=== PATIENT | female | born 1965 | race African-American/Black ===

== ENCOUNTER 2022-06-11 17:34 | Emergency (ER) | payer OTHER | END 2022-06-11 18:53 | disposition home or self-care (01) | LOC: CSHERS 17:34 | DX: I82.401 Acute embolism and thrombosis of unspecified deep veins of right lower extremity (principal); I10 Essential (primary) hypertension; F17.220 Nicotine dependence, chewing tobacco, uncomplicated ==

== ENCOUNTER 2023-03-16 23:45 | Inpatient (IN) | payer OTHER ==
[2023-03-17] MEDS ORDERED: Vancomycin 1 GM VIAL ONE (00:12)
[2023-03-17] MEDS ORDERED: Cefepime 2 GM VIAL ONE ×2 (00:12→11:55)
[2023-03-17 00:37] LABS: ALT (SGPT) 16 U/L (8-55); AST (SGOT) 23 U/L (5-34); Albumin 3.1 g/dL (3.5-5.0); Alkaline Phosphatase 47 U/L (40-110); Anion Gap 15 mmol/L (10-20); BUN (Urea Nitrogen) 28 mg/dL (9.8-20.1); Bilirubin, Total 0.8 mg/dL (0.2-1.2); Calc. Creatinine Clearance 0 mL/min (70-130); Carbon Dioxide 24 mmol/L (22-29); Chloride 96 mmol/L (98-107); Estimated GFR 16; Globulin 4.1 g/dL (2.4-3.5); Glucose 117 mg/dL (70-105); Magnesium 1.6 mg/dL (1.6-2.6); Potassium 2.7 mmol/L (3.5-5.1); Protein, Total 7.2 g/dL (6.0-8.3); Sodium 132 mmol/L (136-145)
[2023-03-17 00:40] LABS: Hemoglobin 9.3 g/dL (12.0-15.5); Mean Corpuscular HGB CONC 33.3 g/dL (32.0-36.0); Mean Corpuscular Hemoglobin 32.7 pg (27.0-33.0); Mean Corpuscular Volume 98.2 fl (81.6-98.3); Mean Platelet Volume 9.4 fl (7.4-10.4); Platelet Count 290 10x3/uL (150-450); RBC Distribution Width 14.4 % (11.5-14.5); Red Blood Cell (RBC) Count 2.84 10x6/uL (3.90-5.03); White Blood Cell (WBC) Count 16.2 10x3/uL (3.5-10.5)
[2023-03-17 00:46] LABS: MDiff Complete? YES
[2023-03-17] MEDS ORDERED: Ondansetron PF 4 MG/2 ML Vial ONE (00:49)
[2023-03-17] MEDS ORDERED: Morphine 4 MG/ML VIAL ONE (00:50)
[2023-03-17 01:03] LABS: Band 22 % (5-11); Lymphocytes 6 % (21-51); Monocytes 2 % (0-10); Neutrophil 70 % (42-75)
[2023-03-17 01:04] LABS: Platelet Adequacy Comment Appears Adequate; RBC Morph Comment Within Normal Limits
[2023-03-17] MEDS ORDERED: Potassium Bicarbonate/Cit Ac 25 MEQ TAB PO SCH (01:45)
[2023-03-17] MEDS ORDERED: Acetaminophen 325 MG TAB PO PRN (03:36)
[2023-03-17] MEDS ORDERED: Sodium Chloride 0.9% 1,000 ML IV SCH (04:00)
[2023-03-17 07:45] VITALS: BMI 38.5
[2023-03-17 09:47] LABS: Anion Gap 16 mmol/L (10-20); BUN (Urea Nitrogen) 34 mg/dL (9.8-20.1); Calc. Creatinine Clearance 27 mL/min (70-130); Calcium 8.7 mg/dL (7.8-10.44); Carbon Dioxide 23 mmol/L (22-29); Chloride 98 mmol/L (98-107); Estimated GFR 14; Glucose 113 mg/dL (70-105); Potassium 3.3 mmol/L (3.5-5.1); Sodium 134 mmol/L (136-145)
[2023-03-17 09:48] LABS: Hemoglobin 9.1 g/dL (12.0-15.5); Mean Corpuscular HGB CONC 33.2 g/dL (32.0-36.0); Mean Corpuscular Hemoglobin 32.6 pg (27.0-33.0); Mean Corpuscular Volume 98.2 fl (81.6-98.3); Mean Platelet Volume 9.3 fl (7.4-10.4); Platelet Count 309 10x3/uL (150-450); RBC Distribution Width 14.6 % (11.5-14.5); Red Blood Cell (RBC) Count 2.79 10x6/uL (3.90-5.03); White Blood Cell (WBC) Count 17.3 10x3/uL (3.5-10.5)
[2023-03-17] MEDS: Enoxaparin 120 MG/0.8 ML SYRINGE SC SCH (09:53)
[2023-03-17 10:29] LABS: Band 16 % (5-11); Lymphocytes 7 % (21-51); Monocytes 4 % (0-10); Neutrophil 73 % (42-75)
[2023-03-17 10:31] LABS: Dohle Bodies SLIGHT; Toxic Granulation SLIGHT
[2023-03-17 10:32] LABS: Large Platelets SLIGHT (None Seen); Platelet Adequacy Comment Appears Adequate; RBC Morph Comment Within Normal Limits; Vacuoles SLIGHT
[2023-03-17 10:33] LABS: MDiff Complete? YES
[2023-03-17] MEDS ORDERED: Potassium Chloride 20 MEQ TAB PO SCH (11:00)
[2023-03-17] MEDS ORDERED: Potassium Chloride 20 MEQ TAB ONE (11:55)
[2023-03-17] MEDS ORDERED: Cefepime 2 GM in Sodium Chloride 0.9% 100 ML IVPB SCH (12:00)
[2023-03-17] MEDS ORDERED: Vancomycin 1.5 GRAM/300 ML BAG IVPB SCH (12:00)
[2023-03-17 12:26] LABS: Vancomycin, Random 10.8 ug/mL (See Comment)
[2023-03-17] MEDS ORDERED: Vancomycin HCl 750 MG in Sodium Chloride 0.9% 250 ML 250 ML IVPB SCH (13:00)
[2023-03-17] MEDS ORDERED: Vancomycin Dose by Levels Sliding Scale (Wt > 99) FS SCH (14:15)
[2023-03-17] MEDS: Sodium Chloride 0.9% 1,000 ML IV SCH ×2 (19:57→20:08)
[2023-03-17] MEDS: traMADol HCl 50 MG TAB PO PRN (22:40)
[2023-03-17] MEDS: Cefepime 1 GM in Sodium Chloride 0.9% 100 ML IVPB SCH (23:56)
[2023-03-18] MEDS: Sodium Chloride 0.9% 1,000 ML IV SCH ×2 (03:17→14:47)
[2023-03-18 05:06] LABS: Hemoglobin 7.6 g/dL (12.0-15.5); Mean Corpuscular HGB CONC 32.3 g/dL (32.0-36.0); Mean Corpuscular Hemoglobin 32.2 pg (27.0-33.0); Mean Corpuscular Volume 99.6 fl (81.6-98.3); Mean Platelet Volume 9.1 fl (7.4-10.4); Platelet Count 270 10x3/uL (150-450); Red Blood Cell (RBC) Count 2.36 10x6/uL (3.90-5.03); White Blood Cell (WBC) Count 16.8 10x3/uL (3.5-10.5)
[2023-03-18 05:08] LABS: MDiff Complete? YES
[2023-03-18 05:13] LABS: Anion Gap 15 mmol/L (10-20); BUN (Urea Nitrogen) 34 mg/dL (9.8-20.1); Calc. Creatinine Clearance 35 mL/min (70-130); Calcium 8.3 mg/dL (7.8-10.44); Carbon Dioxide 22 mmol/L (22-29); Chloride 105 mmol/L (98-107); Estimated GFR 18; Glucose 98 mg/dL (70-105); Potassium 3.5 mmol/L (3.5-5.1); Sodium 138 mmol/L (136-145)
[2023-03-18 05:47] LABS: Band 15 % (5-11); Eosinophils 1 % (0-10); Lymphocytes 7 % (21-51); Monocytes 3 % (0-10); Neutrophil 73 % (42-75)
[2023-03-18 05:49] LABS: Platelet Adequacy Comment Appears Adequate; RBC Morph Comment Within Normal Limits
[2023-03-18] MEDS: Potassium Chloride 20 MEQ TAB PO SCH (09:19)
[2023-03-18] MEDS: Enoxaparin 120 MG/0.8 ML SYRINGE SC SCH (09:21)
[2023-03-18] MEDS: Cefepime 1 GM in Sodium Chloride 0.9% 100 ML IVPB SCH ×2 (13:22→23:57)
[2023-03-18 14:26] LABS: Vancomycin, Random 9.8 ug/mL (See Comment)
[2023-03-18] MEDS: Lactated Ringer's 1,000 ML IV SCH ×2 (15:30→21:03)
[2023-03-18] MEDS ORDERED: VANCOMYCIN 1.25 GM/250 ML BAG 1.25 GM in Premix Bag 1 BAG IVPB SCH (16:00)
[2023-03-18] MEDS: traMADol HCl 50 MG TAB PO PRN (16:25)
[2023-03-18 18:46] LABS: Bilirubin Neg (Negative); Blood, Urine 150 (Negative); Glucose, Urine (Dipstick) Normal (Negative); Ketone, Urine Negative (Negative); Leukocyte Negative (Negative); Nitrite Negative (Negative); Protein, Urine (Dipstick) 30 mg/dl (Neg-Trace); Urobilinogen Normal mg/dL (Less than 2)
[2023-03-18 18:47] LABS: Clarity Hazy (Clear)
[2023-03-18 19:04] LABS: Bacteria/HPF None Seen HPF (None Seen); RBC/HPF 0-3 HPF (0-3); Squamous Epithelial 0-3 HPF (0-3); WBC/HPF 0-3 HPF (0-3)
[2023-03-18 19:40] LABS: Platelet Count 272 10x3/uL (150-450)
[2023-03-18] MEDS ORDERED: Famotidine 20 MG TAB PO SCH (21:00)
[2023-03-18] MEDS ORDERED: ABEMACICLIB 150 MG PO SCH (21:00)
[2023-03-18] MEDS: DULoxetine 30 MG CAP PO SCH (21:04)
[2023-03-18] MEDS: Calcium Carbonate 600 MG + Vit D TAB PO SCH (21:04)
[2023-03-19] MEDS ORDERED: Cefepime 1 GM in Sodium Chloride 0.9% 100 ML IVPB SCH (00:01)
[2023-03-19] MEDS: traMADol HCl 50 MG TAB PO PRN ×2 (04:07→16:20)
[2023-03-19 04:53] LABS: #Basophils 0.1 10x3/uL (0.0-0.2); #Eosinphils 0.1 10x3/uL (0.0-0.5); #Monocytes 0.3 10x3/uL (0.0-1.1); #Neutrophils 9.3 10x3/uL (1.5-8.4); %Basophils 0.6 % (0.0-2.0); %Eosinophils 1.2 % (0.0-6.0); %Lymphocytes 9.6 % (18.0-47.0); %Neutrophils 84.2 % (40.0-75.0); Hemoglobin 7.7 g/dL (12.0-15.5); Mean Corpuscular HGB CONC 32.4 g/dL (32.0-36.0); Mean Corpuscular Hemoglobin 32.4 pg (27.0-33.0); Mean Platelet Volume 9.3 fl (7.4-10.4); Platelet Count 283 10x3/uL (150-450); RBC Distribution Width 15.3 % (11.5-14.5); Red Blood Cell (RBC) Count 2.38 10x6/uL (3.90-5.03)
[2023-03-19 05:13] LABS: Vancomycin, Random 17.6 ug/mL (See Comment)
[2023-03-19 05:15] LABS: Anion Gap 13 mmol/L (10-20); BUN (Urea Nitrogen) 22 mg/dL (9.8-20.1); Calc. Creatinine Clearance 55 mL/min (70-130); Calcium 8.9 mg/dL (7.8-10.44); Carbon Dioxide 22 mmol/L (22-29); Chloride 110 mmol/L (98-107); Estimated GFR 32; Glucose 100 mg/dL (70-105); Iron 20 ug/dL (50-170); Iron Binding Capacity, Total 173 mcg/dL (265-497); Potassium 3.5 mmol/L (3.5-5.1); Sodium 141 mmol/L (136-145)
[2023-03-19] MEDS: Lactated Ringer's 1,000 ML IV SCH ×4 (05:52→21:23)
[2023-03-19] MEDS ORDERED: Vancomycin HCl 750 MG in Sodium Chloride 0.9% 250 ML 250 ML IVPB SCH (06:00)
[2023-03-19] MEDS ORDERED: Iron, Sodium Ferric Gluconate 125 MG in Sodium Chloride 0.9% 100 ML IVPB SCH ×2 (08:00→11:15)
[2023-03-19] MEDS: Enoxaparin 120 MG/0.8 ML SYRINGE SC SCH (08:03)
[2023-03-19] MEDS: Calcium Carbonate 600 MG + Vit D TAB PO SCH ×2 (08:04→21:23)
[2023-03-19] MEDS: Potassium Chloride 20 MEQ TAB PO SCH (08:04)
[2023-03-19] MEDS ORDERED: Famotidine 20 MG TAB PO SCH (09:00)
[2023-03-19] MEDS: Folic Acid/Vit B Comp W-C PO SCH (09:20)
[2023-03-19] MEDS: Cefepime 1 GM in Sodium Chloride 0.9% 100 ML IVPB SCH (12:22)
[2023-03-19] MEDS ORDERED: Morphine 2 MG/ML VIAL SLOW IVP PRN (18:55)
[2023-03-19] MEDS: DULoxetine 30 MG CAP PO SCH (21:23)
[2023-03-20] MEDS: Cefepime 1 GM in Sodium Chloride 0.9% 100 ML IVPB SCH ×2 (00:41→12:53)
[2023-03-20 04:56] LABS: #Basophils 0.1 10x3/uL (0.0-0.2); #Eosinphils 0.1 10x3/uL (0.0-0.5); #Monocytes 0.2 10x3/uL (0.0-1.1); #Neutrophils 7.1 10x3/uL (1.5-8.4); %Basophils 0.8 % (0.0-2.0); %Eosinophils 1.6 % (0.0-6.0); %Lymphocytes 12.7 % (18.0-47.0); %Monocytes 2.7 % (0.0-10.0); %Neutrophils 80.9 % (40.0-75.0); Hemoglobin 7.6 g/dL (12.0-15.5); Mean Corpuscular HGB CONC 32.2 g/dL (32.0-36.0); Mean Corpuscular Hemoglobin 32.8 pg (27.0-33.0); Mean Corpuscular Volume 101.7 fl (81.6-98.3); Mean Platelet Volume 9.4 fl (7.4-10.4); Platelet Count 303 10x3/uL (150-450); RBC Distribution Width 15.2 % (11.5-14.5); Red Blood Cell (RBC) Count 2.32 10x6/uL (3.90-5.03); White Blood Cell (WBC) Count 8.8 10x3/uL (3.5-10.5)
[2023-03-20 05:10] LABS: Anion Gap 15 mmol/L (10-20); BUN (Urea Nitrogen) 17 mg/dL (9.8-20.1); Calc. Creatinine Clearance 77 mL/min (70-130); Calcium 9.4 mg/dL (7.8-10.44); Carbon Dioxide 21 mmol/L (22-29); Chloride 111 mmol/L (98-107); Estimated GFR 47; Glucose 93 mg/dL (70-105); Potassium 3.7 mmol/L (3.5-5.1); Sodium 143 mmol/L (136-145); Vancomycin, Random 12.6 ug/mL (See Comment)
[2023-03-20] MEDS: Lactated Ringer's 1,000 ML IV SCH ×2 (05:27→12:54)
[2023-03-20] MEDS: Ferrous Sulfate 325 MG TAB PO SCH (09:00)
[2023-03-20] MEDS: Potassium Chloride 20 MEQ TAB PO SCH (09:00)
[2023-03-20] MEDS: Famotidine 20 MG TAB PO SCH ×2 (09:00→21:21)
[2023-03-20] MEDS: Calcium Carbonate 600 MG + Vit D TAB PO SCH ×2 (09:00→21:21)
[2023-03-20] MEDS: Folic Acid/Vit B Comp W-C PO SCH (09:01)
[2023-03-20] MEDS: Enoxaparin 120 MG/0.8 ML SYRINGE SC SCH ×2 (09:02→21:21)
[2023-03-20] MEDS: VANCOMYCIN 1.25 GM/250 ML BAG 1.25 GM in Premix Bag 1 BAG IVPB SCH (09:03)
[2023-03-20] MEDS: HYDROcodone/Acetaminophen 5/325 mg Tablet PO PRN (12:51)
[2023-03-20] MEDS ORDERED: Lactated Ringer's 1,000 ML IV SCH (15:12)
[2023-03-20] MEDS: DULoxetine 30 MG CAP PO SCH (21:21)
[2023-03-21] MEDS: Cefepime 1 GM in Sodium Chloride 0.9% 100 ML IVPB SCH ×2 (00:01→13:03)
[2023-03-21 04:27] LABS: #Basophils 0.1 10x3/uL (0.0-0.2); #Eosinphils 0.1 10x3/uL (0.0-0.5); #Monocytes 0.3 10x3/uL (0.0-1.1); #Neutrophils 7.4 10x3/uL (1.5-8.4); %Eosinophils 1.3 % (0.0-6.0); %Lymphocytes 12.8 % (18.0-47.0); %Monocytes 3.2 % (0.0-10.0); %Neutrophils 80.3 % (40.0-75.0); Hemoglobin 7.9 g/dL (12.0-15.5); Mean Corpuscular HGB CONC 31.9 g/dL (32.0-36.0); Mean Corpuscular Volume 100.4 fl (81.6-98.3); Mean Platelet Volume 9.5 fl (7.4-10.4); Platelet Count 323 10x3/uL (150-450); RBC Distribution Width 14.9 % (11.5-14.5); Red Blood Cell (RBC) Count 2.47 10x6/uL (3.90-5.03); White Blood Cell (WBC) Count 9.2 10x3/uL (3.5-10.5)
[2023-03-21 04:42] LABS: Anion Gap 13 mmol/L (10-20); BUN (Urea Nitrogen) 13 mg/dL (9.8-20.1); Calc. Creatinine Clearance 99 mL/min (70-130); Calcium 9.8 mg/dL (7.8-10.44); Carbon Dioxide 21 mmol/L (22-29); Chloride 112 mmol/L (98-107); Estimated GFR 64; Glucose 84 mg/dL (70-105); Sodium 142 mmol/L (136-145)
[2023-03-21] MEDS: Potassium Chloride 20 MEQ TAB PO SCH (08:04)
[2023-03-21] MEDS: Famotidine 20 MG TAB PO SCH ×2 (08:04→20:59)
[2023-03-21] MEDS: Calcium Carbonate 600 MG + Vit D TAB PO SCH ×2 (08:07→20:59)
[2023-03-21] MEDS: Enoxaparin 120 MG/0.8 ML SYRINGE SC SCH ×2 (08:07→20:58)
[2023-03-21] MEDS: Ferrous Sulfate 325 MG TAB PO SCH (08:07)
[2023-03-21] MEDS: Folic Acid/Vit B Comp W-C PO SCH (08:07)
[2023-03-21] MEDS: VANCOMYCIN 1.25 GM/250 ML BAG 1.25 GM in Premix Bag 1 BAG IVPB SCH (09:03)
[2023-03-21] MEDS ORDERED: Thiamine HCl 200 MG/2 ML VIAL SLOW IVP SCH (10:45)
[2023-03-21] MEDS ORDERED: Lisinopril 20 MG TAB PO SCH (14:45)
[2023-03-21] MEDS ORDERED: Enoxaparin 120 MG/0.8 ML SYRINGE SC ONE (20:53)
[2023-03-21] MEDS: DULoxetine 30 MG CAP PO SCH (20:58)
[2023-03-22] MEDS: Cefepime 1 GM in Sodium Chloride 0.9% 100 ML IVPB SCH (00:43)
[2023-03-22 04:48] LABS: #Basophils 0.1 10x3/uL (0.0-0.2); #Eosinphils 0.1 10x3/uL (0.0-0.5); #Monocytes 0.3 10x3/uL (0.0-1.1); #Neutrophils 7.4 10x3/uL (1.5-8.4); %Eosinophils 1.3 % (0.0-6.0); %Lymphocytes 15.3 % (18.0-47.0); %Monocytes 3.1 % (0.0-10.0); %Neutrophils 78.1 % (40.0-75.0); Hemoglobin 7.5 g/dL (12.0-15.5); Mean Corpuscular HGB CONC 32.1 g/dL (32.0-36.0); Mean Corpuscular Hemoglobin 32.3 pg (27.0-33.0); Mean Corpuscular Volume 100.9 fl (81.6-98.3); Mean Platelet Volume 9.8 fl (7.4-10.4); Platelet Count 322 10x3/uL (150-450); RBC Distribution Width 14.6 % (11.5-14.5); Red Blood Cell (RBC) Count 2.32 10x6/uL (3.90-5.03); White Blood Cell (WBC) Count 9.4 10x3/uL (3.5-10.5)
[2023-03-22 04:49] LABS: Anion Gap 12 mmol/L (10-20); BUN (Urea Nitrogen) 11 mg/dL (9.8-20.1); Calc. Creatinine Clearance 114 mL/min (70-130); Calcium 9.3 mg/dL (7.8-10.44); Carbon Dioxide 22 mmol/L (22-29); Chloride 109 mmol/L (98-107); Estimated GFR 76; Glucose 93 mg/dL (70-105); Potassium 3.5 mmol/L (3.5-5.1); Sodium 139 mmol/L (136-145)
[2023-03-22 08:57] LABS: Vancomycin, Trough 10.2 ug/mL
[2023-03-22] MEDS: Folic Acid/Vit B Comp W-C PO SCH (10:15)
[2023-03-22] MEDS: Enoxaparin 120 MG/0.8 ML SYRINGE SC SCH (10:15)
[2023-03-22] MEDS: Calcium Carbonate 600 MG + Vit D TAB PO SCH ×2 (10:15→20:18)
[2023-03-22] MEDS: Lisinopril 20 MG TAB PO SCH (10:16)
[2023-03-22] MEDS: Potassium Chloride 20 MEQ TAB PO SCH (10:16)
[2023-03-22] MEDS: Ferrous Sulfate 325 MG TAB PO SCH (10:16)
[2023-03-22] MEDS: Thiamine 100 MG TAB PO SCH (10:16)
[2023-03-22] MEDS: Famotidine 20 MG TAB PO SCH ×2 (10:16→20:18)
[2023-03-22] MEDS: VANCOMYCIN 1.25 GM/250 ML BAG 1.25 GM in Premix Bag 1 BAG IVPB SCH (10:17)
[2023-03-22] MEDS: Cefepime 2 GM in Sodium Chloride 0.9% 100 ML IVPB SCH (12:00)
[2023-03-22] MEDS: HYDROcodone/Acetaminophen 5/325 mg Tablet PO PRN (13:34)
[2023-03-22] MEDS: Apixaban 5 MG TAB PO SCH (20:18)
[2023-03-22] MEDS: DULoxetine 30 MG CAP PO SCH (20:18)
[2023-03-23] MEDS: Cefepime 2 GM in Sodium Chloride 0.9% 100 ML IVPB SCH ×2 (00:59→11:40)
[2023-03-23 04:04] LABS: Anion Gap 9 mmol/L (10-20); BUN (Urea Nitrogen) 8 mg/dL (9.8-20.1); Calc. Creatinine Clearance 107 mL/min (70-130); Calcium 9.2 mg/dL (7.8-10.44); Carbon Dioxide 24 mmol/L (22-29); Chloride 110 mmol/L (98-107); Estimated GFR 70; Glucose 99 mg/dL (70-105); Potassium 3.7 mmol/L (3.5-5.1); Sodium 139 mmol/L (136-145)
[2023-03-23 04:10] LABS: #Basophils 0.1 10x3/uL (0.0-0.2); #Eosinphils 0.1 10x3/uL (0.0-0.5); #Monocytes 0.3 10x3/uL (0.0-1.1); #Neutrophils 5.7 10x3/uL (1.5-8.4); %Basophils 0.7 % (0.0-2.0); %Eosinophils 1.4 % (0.0-6.0); %Lymphocytes 18.4 % (18.0-47.0); %Monocytes 3.5 % (0.0-10.0); %Neutrophils 74.7 % (40.0-75.0); Hemoglobin 7.5 g/dL (12.0-15.5); Mean Corpuscular HGB CONC 32.2 g/dL (32.0-36.0); Mean Corpuscular Hemoglobin 32.3 pg (27.0-33.0); Mean Corpuscular Volume 100.4 fl (81.6-98.3); Mean Platelet Volume 9.6 fl (7.4-10.4); Platelet Count 318 10x3/uL (150-450); RBC Distribution Width 14.6 % (11.5-14.5); Red Blood Cell (RBC) Count 2.32 10x6/uL (3.90-5.03); White Blood Cell (WBC) Count 7.6 10x3/uL (3.5-10.5)
[2023-03-23] MEDS: Ferrous Sulfate 325 MG TAB PO SCH (08:21)
[2023-03-23] MEDS: Potassium Chloride 20 MEQ TAB PO SCH (08:21)
[2023-03-23] MEDS: VANCOMYCIN 1.25 GM/250 ML BAG 1.25 GM in Premix Bag 1 BAG IVPB SCH (09:05)
[2023-03-23] MEDS: Apixaban 5 MG TAB PO SCH (09:22)
[2023-03-23] MEDS: Famotidine 20 MG TAB PO SCH (09:22)
[2023-03-23] MEDS: Folic Acid/Vit B Comp W-C PO SCH (09:22)
[2023-03-23] MEDS: Lisinopril 20 MG TAB PO SCH (09:22)
[2023-03-23] MEDS: Calcium Carbonate 600 MG + Vit D TAB PO SCH (09:22)
[2023-03-23] MEDS: Thiamine 100 MG TAB PO SCH (09:23)
[2023-03-23 12:25] VITALS: TEMP 98
[2023-03-23 16:45] VITALS: BP 166/86
== END 2023-03-23 18:55 | disposition home or self-care (01) | DRG 872 ==
LOC: CSHERS 23:45 → CSHERHOLD 03-17 01:33 → CSHTELE 03-17 18:26
PROVIDERS: ADMIT Internal Medicine; ATTEND Internal Medicine
PROC: 3E03329 Introduction of Other Anti-infective into Peripheral Vein, Percutaneous Approach (ICD-10-PCS; principal; 2023-03-17)
PROC: 0Y9J3ZX Drainage of Left Lower Leg, Percutaneous Approach, Diagnostic (ICD-10-PCS; 2023-03-18)
DX: A41.9 Sepsis, unspecified organism (principal); L03.116 Cellulitis of left lower limb; N17.9 Acute kidney failure, unspecified; C79.51 Secondary malignant neoplasm of bone; R65.20 Severe sepsis without septic shock; J45.909 Unspecified asthma, uncomplicated; C50.912 Malignant neoplasm of unspecified site of left female breast; E87.6 Hypokalemia; E66.01 Morbid (severe) obesity due to excess calories; I12.9 Hypertensive chronic kidney disease with stage 1 through stage 4 chronic kidney disease, or unspecified chronic kidney disease; N18.9 Chronic kidney disease, unspecified; D53.9 Nutritional anemia, unspecified; D50.9 Iron deficiency anemia, unspecified; F17.210 Nicotine dependence, cigarettes, uncomplicated; I87.2 Venous insufficiency (chronic) (peripheral); F10.10 Alcohol abuse, uncomplicated; G31.2 Degeneration of nervous system due to alcohol; Z88.8 Allergy status to other drugs, medicaments and biological substances; Z79.51 Long term (current) use of inhaled steroids; Z79.899 Other long term (current) drug therapy; Z90.49 Acquired absence of other specified parts of digestive tract; Z90.710 Acquired absence of both cervix and uterus; Z98.890 Other specified postprocedural states; Z68.38 Body mass index [BMI] 38.0-38.9, adult; Z86.718 Personal history of other venous thrombosis and embolism; Z85.3 Personal history of malignant neoplasm of breast
CPT/HCPCS: 36415; 74176; 80048; 80053; 80202; 81001; 83540; 83550; 83605; 83735; 85025; 86850; 86900; 86901; 87040; 87070; 87205; 93923; 94760; 94762; 96361; 96365; 96366; 96367; 96375; 97139; J0692; J1650; J2270; J2272; J2405; J2916; J3370; J3411; J3490; J7050; J7120

== ENCOUNTER 2024-01-28 08:37 | Outpatient (CLI) | payer OTHER | END 2024-01-28 08:38 | disposition home or self-care (01) | LOC: CSHMRI 08:37 | PROVIDERS: ATTEND Internal Medicine Hematology & Oncology | DX: C50.919 Malignant neoplasm of unspecified site of unspecified female breast (principal); C79.9 Secondary malignant neoplasm of unspecified site | CPT/HCPCS: 71552; 72197; 74183; 82565 ==

== ENCOUNTER 2024-08-29 00:16 | Emergency (ER) | payer OTHER ==
[2024-08-29] MEDS ORDERED: HYDROcodone/Acetaminophen 5/325 mg Tablet ONE (01:52)
== END 2024-08-29 03:16 | disposition home or self-care (01) ==
LOC: CSHERS 00:16
DX: M10.072 Idiopathic gout, left ankle and foot (principal); I10 Essential (primary) hypertension; Z79.899 Other long term (current) drug therapy

== ENCOUNTER 2025-07-23 22:41 | Emergency (ER) | payer MEDICAID, OTHER ==
[2025-07-23] MEDS ORDERED: Acetaminophen 500 MG TAB ONE (22:59)
[2025-07-23 23:18] LABS: #Basophils 0.03 10x3/uL (0.0-0.2); #Eosinophils Less than 0.03 10x3/uL (0.0-0.5); #Monocytes 0.18 10x3/uL (0.0-1.1); #Neutrophils 3.70 10x3/uL (1.5-8.4); %Basophils 0.6 % (0.0-2.0); %Eosinophils 0.2 % (0.0-6.0); %Lymphocytes 16.0 % (18.0-47.0); %Monocytes 3.8 % (0.0-10.0); %Neutrophils 79.0 % (40.0-75.0); Hematocrit 24.3 % (34.9-44.5); Hemoglobin 8.2 g/dL (12.0-15.5); Mean Corpuscular Hemoglobin 33.2 pg (27.0-33.0); Mean Corpuscular Volume 98.4 fL (81.6-98.3); Platelet Count 277 10x3/uL (150-450); Red Blood Cell (RBC) Count 2.47 10x6/uL (3.90-5.03); White Blood Cell (WBC) Count 4.69 10x3/uL (3.5-10.5)
[2025-07-23 23:32] LABS: Anion Gap 14 mmol/L (10-20); BUN (Urea Nitrogen) 16 mg/dL (9.8-20.1); Calc. Creatinine Clearance 0 mL/min (70-130); Calcium 8.6 mg/dL (7.8-10.44); Carbon Dioxide 22 mmol/L (23-31); Chloride 108 mmol/L (98-107); Glucose 152 mg/dL (80-115); Potassium 2.8 mmol/L (3.5-5.1); Sodium 141 mmol/L (136-145)
[2025-07-23] MEDS ORDERED: Droperidol 5 MG/2 ML VIAL ONE (23:52)
[2025-07-23] MEDS ORDERED: diphenhydrAMINE 50 MG/ML VIAL ONE (23:52)
== END 2025-07-24 03:07 | disposition home or self-care (01) ==
LOC: CSHERS 22:41
DX: M79.604 Pain in right leg (principal); M79.605 Pain in left leg; E86.0 Dehydration; E87.6 Hypokalemia; G62.9 Polyneuropathy, unspecified; N18.9 Chronic kidney disease, unspecified; Z86.718 Personal history of other venous thrombosis and embolism; F17.220 Nicotine dependence, chewing tobacco, uncomplicated
CPT/HCPCS: 36415; 36416; 80048; 83605; 85025; 93970; 96374; 96375; J1200; J1790